=== PATIENT | female | born 1980 ===

== ENCOUNTER 2018-10-08 08:06 | Outpatient (CLI) | payer OTHER | END 2018-10-08 08:07 | disposition home or self-care (01) | LOC: C.USIC 08:06 ==

== ENCOUNTER 2018-10-30 09:39 | Outpatient (CLI) | payer SELFPAY, OTHER | END 2018-10-30 09:40 | disposition home or self-care (01) | LOC: C.USIC 09:39 | DX: N64.4 Mastodynia (principal) ==

== ENCOUNTER 2018-12-15 18:24 | Emergency (ER) | payer SELFPAY ==
[2018-12-15 18:24] VITALS: BMI 27.2
[2018-12-15 18:29] VITALS: BP 122/76; PULSE 94; RESP 20; TEMP 98.1; O2SAT 100
--- NOTE | 2018-12-15 19:06 | C.PDOC ---
History Of Present Illness 38 year old female presents to the ED complaining of dry cough for 9 days. Reports she thinks she inhaled too much of the Easy Off product while she was cleaning the oven. States she has been coughing since then despite use of Nyquil. Denies any fever, chills, diarrhea, nausea, vomiting, chest pain, SOB, throat pain, or any other symptoms. Time Seen by Provider: 12/15/18 18:32 Chief Complaint (Nursing): Cough, Cold, Congestion History Per: Patient History/Exam Limitations: no limitations Onset/Duration Of Symptoms: Days (9) Current Symptoms Are (Timing): Still Present Associated Symptoms: Cough. denies: Fever, Chills, Sore Throat, Nasal Congestion, Nausea, Vomiting, Diarrhea Past Medical History Reviewed: Historical Data, Nursing Documentation, Vital Signs Vital Signs: Last Vital Signs Temp 98.1 F 12/15/18 18:26 Pulse 94 H 12/15/18 18:26 Resp 20 12/15/18 18:26 BP 122/76 12/15/18 18:26 Pulse Ox 100 12/15/18 18:26 - Medical History PMH: No Chronic Diseases Surgical History: Family History: States: No Known Family Hx - Social History Hx Alcohol Use: No Hx Substance Use: No - Immunization History Hx Tetanus Toxoid Vaccination: No Hx Influenza Vaccination: No Hx Pneumococcal Vaccination: No Review Of Systems Constitutional: Negative for: Fever, Chills ENT: Negative for: Throat Pain Cardiovascular: Negative for: Chest Pain Respiratory: Positive for: Cough. Negative for: Shortness of Breath Gastrointestinal: Negative for: Nausea, Vomiting, Diarrhea Physical Exam - Physical Exam Appears: Non-toxic, No Acute Distress Skin: Warm, Dry, No Rash Head: Normacephalic Eye(s): bilateral: Normal Inspection Nose: Normal Oral Mucosa: Moist Neck: Supple Chest: Symmetrical Cardiovascular: Rhythm Regular Respiratory: Normal Breath Sounds, No Accessory Muscle Use, No Wheezing Gastrointestinal/Abdominal: Soft, No Tenderness Neurological/Psych: Oriented x3, Normal Speech Gait: Steady ED Course And Treatment O2 Sat by Pulse Oximetry: 100 (RA) Pulse Ox Interpretation: Normal Medical Decision Making Medical Decision Making: Plan - Tessalon Perles 200mg PO - Benadryl 25mg PO On reassessment, patient is resting comfortably, and is in no acute distress. Patient was instructed to follow up with physician/clinic in 1-2 days for further evaluation. Patient verbalizes understanding and is in agreement with plan. Patient is stable for discharge. Disposition Counseled Patient/Family Regarding: Diagnosis, Need For Followup, Rx Given - Disposition Referrals: [facility] [Outside] Disposition: HOME/ ROUTINE Disposition Time: 19:04 Condition: STABLE Additional Instructions: Continue Meds as prescribed Rest and Hydration Follow up with PMD in 1-2 days Return to the ED if symptoms worsen Prescriptions: Benzonatate [Tessalon Perles] 100 mg PO TID #30 sgl DiphenhydrAMINE [Benadryl] 25 mg PO BID #14 cap Instructions: Cough, Adult (DC) Forms: [employer] (French) Print Language: GERMAN - Clinical Impression Clinical Impression: Cough, Allergic reaction - PA / ENTOMOLOGY TEACHER / Resident Statement MD/DO has reviewed & agrees with the documentation as recorded. - Scribe Statement The provider has reviewed the documentation as recorded by the Scribe Sonja Pitts All medical record entries made by the [facility] were at my direction and personally dictated by me. I have reviewed the chart and agree that the record accurately reflects my personal performance of the history, physical exam, medical decision making, and the department course for this patient. I have also personally directed, reviewed, and agree with the discharge instructions and disposition.
== END 2018-12-15 19:27 | disposition home or self-care (01) ==
LOC: C.ER 18:24
DX: R05 Cough (principal); T78.40XA Allergy, unspecified, initial encounter